=== PATIENT | male | born 1985 | race Caucasian/White ===

== ENCOUNTER 2017-05-07 09:34 | Emergency (ER) | payer OTHER ==
[2017-05-07 09:38] VITALS: BP 145/78; PULSE 96; RESP 18; TEMP 97.7; O2SAT 98
--- NOTE | 2017-05-07 09:56 | EDPHY ---
H & P Smoking Status: Never smoked Time Seen by Provider: 05/07/17 09:46 HPI/ROS: CHIEF COMPLAINT: Head injury HISTORY OF PRESENT ILLNESS: 32-year-old male presents to the emergency department by private vehicle with closed head injury. The patient was at [facility] and was on a rowing machine and the strap on the rowing machine snapped and he fell back and hit his head on a glass wall. The glass did not break. He did not lose consciousness. He immediately noted pain in the back of his head. He denies neck or back pain. Denies chest pain or difficulty breathing. Denies paresthesias in upper or lower extremities. Denies visual symptoms. He feels mildly nauseous although no vomiting. He presents to the emergency department for evaluation. REVIEW OF SYSTEMS: Constitutional: No fever, no chills. Eyes: No double or blurry vision. ENT: No sore throat. Respiratory: No cough, no shortness of breath. Cardiac: No chest pain. Gastrointestinal: No abdominal pain, vomiting or diarrhea. Genitourinary: No dysuria. Musculoskeletal: No neck or back pain. Skin: No rashes. Neurological: Posterior headache. (Adan,Lorna M) Past Medical/Surgical History: Negative (Adan,Lorna M) Social History: and lives in [place] (Adan,Lorna M) Physical Exam: General Appearance: Alert, no distress. Mentating normally and answering questions appropriately. No visible signs of trauma to his head. Mildly tender to palpate the posterior aspect of the scalp overlying occiput. No palpable crepitus or other bony abnormality. Eyes: Pupils equal and round. Extraocular motions are all intact. ENT: Mouth: Mucous membranes moist. No hemotympanum. Respiratory: No wheezing, rhonchi, or rales, lungs are clear to auscultation. Cardiovascular: Regular rate and rhythm. Gastrointestinal: Abdomen is soft and nontender, no masses, no rebound or guarding, bowel sounds normal. Neurological: Alert and oriented x 3, cranial nerves II through XII grossly intact Skin: Warm and dry, no rashes. Musculoskeletal: Nontender to palpate along the cervical, thoracic or lumbar spine. Neck is supple. Extremities: Full range of motion and no peripheral edema. Psychiatric: Patient is oriented X 3, there is no agitation. (Rosin,Lorna M) Constitutional: Initial Vital Signs Temperature (C) 36.5 C 05/07/17 09:35 Heart Rate 96 05/07/17 09:35 Respiratory Rate 18 05/07/17 09:35 Blood Pressure 145/78 H 05/07/17 09:35 O2 Sat (%) 98 05/07/17 09:35 O2 Delivery Mode Room Air Allergies/Adverse Reactions: No Known Allergies Allergy (Unverified 05/07/17 09:38) Home Medications: Medication Instructions Recorded NK [No Known Home Meds] 05/07/17 Medical Decision Making ED Course/Re-evaluation: 32-year-old male presents to the emergency department closed head injury. The patient has a normal neurologic examination. He did not lose consciousness. I discussed the pros and cons of CT imaging of his brain including radiation exposure the patient declined CT scan. I feel that this is reasonable. His is at bedside who can watch him closely and check his mentation. He was instructed to come back to the emergency department if he developed headache, vomiting, altered mental status, or if he seemed worse in any way. (Lorna Arellano) I did not see this patient while he was in the emergency department. However his care was discussed with the PA while the patient was in the department. I agree with treatment plan and management (Jose Parrish) Differential Diagnosis: Head injury including but not limited to concussion, skull fracture, intraparenchymal contusion, subarachnoid, subdural and epidural hematoma. (NinaLorna angel) Departure - Departure Disposition: Home, Routine, Self-Care Clinical Impression: Closed head injury Qualifiers: Encounter type: initial encounter Qualified Code(s): S09.90XA - Unspecified injury of head, initial encounter Condition: Good Instructions: Head Injury (ED) Additional Instructions: Return to the emergency department if you developed worsening headache, vomiting , altered mental status, or if you feel worse in any way. Avoid any activity that might put you at risk for another head injury for at least 1 week. Referrals: Nela Hernandez MD [Primary Care Provider] - As per Instructions
== END 2017-05-07 10:07 | disposition home or self-care (01) ==
DX: S09.90XA Unspecified injury of head, initial encounter (principal); W01.198A Fall on same level from slipping, tripping and stumbling with subsequent striking against other object, initial encounter; Y92.89 Other specified places as the place of occurrence of the external cause; Y99.8 Other external cause status; Y93.B9 Activity, other involving muscle strengthening exercises

== ENCOUNTER 2018-08-18 11:22 | Emergency (ER) | payer OTHER ==
[2018-08-18 11:27] VITALS: BP 120/76
[2018-08-18] MEDS ORDERED: SKIN ADHESIVE (DERMABOND) 1 EACH TP ONE (11:54)
--- NOTE | 2018-08-18 12:15 | EDPHY ---
H & P Stated Complaint: ran head into shower hook inbr lac to forehead Time Seen by Provider: 08/18/18 11:52 HPI/ROS: CHIEF COMPLAINT: Forehead laceration HISTORY OF PRESENT ILLNESS: 33-year-old male with up-to-date tetanus, no anticoagulant use, sustained accidental forehead laceration when he turned into a shower hook today. No loss of consciousness. No headache. No nausea no vomiting. No midline C-spine pain. REVIEW OF SYSTEMS: 10 systems reviewed and negative with the exception of the elements mentioned in the history of present illness PAST MEDICAL/SURGICAL HISTORY: no anticoagulant use, no relevant medical/ surgical history SOCIAL HISTORY: denies alcohol use at time of incident PHYSICAL EXAM 1) GENERAL: Well-developed, well-nourished, alert and oriented. Appears to be in no acute distress. Answering questions appropriately. 2) HEAD: Normocephalic, stellate 1.5 cm laceration superficial 3) HEENT: Pupils equal, round, reactive to light bilaterally. Negative Horners. Nasopharynx, oropharynx, clear. No deformity or angulation of nose. No septal hematoma. No rhinorrhea. No oral trauma. Ears bilaterally with normal tympanic membranes. No hemotympanum. No fluid or blood in the external auditory canal. No raccoon eyes. No Gamez sign. Teeth are normally aligned with no gross malocclusion, TMJ bilaterally nontender, facial bones nontender including the zygomatic arch, maxilla mandible. 4) NECK: No cervical collar is on. Posterior cervical spine is nontender, no stepoff, no effusion. Full range of motion which does not elicit any midline cervical spine pain, no posterior midline tenderness, no step-off. - Personal History Current Tetanus Diphtheria and Acellular Pertussis (TDAP): Yes - Medical/Surgical History Hx Asthma: No Hx Chronic Respiratory Disease: No Hx Diabetes: No Hx Cardiac Disease: No Hx Renal Disease: No Hx Cirrhosis: No Hx Alcoholism: No Hx HIV/AIDS: No Hx Splenectomy or Spleen Trauma: No Other PMH: neg - Social History Smoking Status: Unknown if ever smoked Constitutional: Initial Vital Signs Temperature (C) 36.4 C 08/18/18 11:25 Heart Rate 86 08/18/18 11:25 Respiratory Rate 18 08/18/18 11:25 Blood Pressure 120/76 08/18/18 11:25 O2 Sat (%) 95 08/18/18 11:25 O2 Delivery Mode Room Air Allergies/Adverse Reactions: No Known Allergies Allergy (Verified 08/18/18 11:25) Home Medications: Medication Instructions Recorded NK [No Known Home Meds] 05/07/17 Medical Decision Making Procedures: Procedure: Laceration repair with tissue adhesive Verbal consent was obtained from the patient. The 1.5 cm laceration on the forehead. The wound was scrubbed and explored to its base with a gloved finger. No foreign body seen, no foreign bodies palpated. There were no deep structures involved. The wound was repaired with tissue adhesive. The procedure was performed by myself. Patient has been informed that scarring will occur, although efforts have been made to minimize this. ED Course/Re-evaluation: Negative [place] head and C-spine decision-making tools. I do not think that imaging indicated at this time. Will plan on primary closure in the ER. Instructed that scarring will occur. He verbalized understanding of this. Given my usual and customary head injury precautions instructions. Care of patient under supervision of secondary supervising physician Dr Holt . Departure - Departure Disposition: Home, Routine, Self-Care Clinical Impression: Laceration of forehead Qualifiers: Encounter type: initial encounter Qualified Code(s): S01.81XA - Laceration without foreign body of other part of head, initial encounter Head injury due to trauma Qualifiers: Encounter type: initial encounter Qualified Code(s): S09.90XA - Unspecified injury of head, initial encounter Condition: Good Instructions: Head Injury (ED), Laceration (ED), Skin Adhesive Care (ED) Additional Instructions: ALTHOUGH THERE IS NO EVIDENCE OF SERIOUS HEAD INJURY AT THIS TIME, DELAYED SIGNS CAN APPEAR 24 TO 48 HOURS AFTER INJURY. PLEASE RETURN TO THE EMERGENCY DEPARTMENT (ED) IMMEDIATELY IF YOU HAVE INCREASED HEADACHE, PERSISTENT HEADACHE , VOMITING, WEAKNESS, CONFUSION OR VISUAL PROBLEMS. WE RECOMMEND THAT YOU DO NOT RESUME CONTACT SPORTS OR ACTIVITIES THAT TAKE COORDINATION OR BALANCE SUCH SKIING OR RIDING A BICYCLE UNTIL CLEARED TO DO SO BY YOUR DOCTOR OR BY A NEUROLOGIST. Referrals: Nela Hernandez MD [Primary Care Provider] - 5-7 days, call for appt.
== END 2018-08-18 12:29 | disposition home or self-care (01) ==
PROC: 0HQ1XZZ Repair Face Skin, External Approach (ICD-10-PCS; principal; 2018-08-18)
DX: S01.81XA Laceration without foreign body of other part of head, initial encounter (principal); W22.09XA Striking against other stationary object, initial encounter; Y92.9 Unspecified place or not applicable; Y93.9 Activity, unspecified; Y99.9 Unspecified external cause status